=== PATIENT | male | born 1985 | race Two or more races ===

== ENCOUNTER 2020-01-18 10:13 | Outpatient (CLI) | payer OTHER | END 2020-01-18 10:19 | disposition home or self-care (01) | LOC: SONOGRAMA 10:13 | PROVIDERS: ATTEND Specialist | DX: R59.0 Localized enlarged lymph nodes (principal) ==

== ENCOUNTER 2020-01-21 09:11 | Outpatient (CLI) | payer OTHER | END 2020-01-21 09:31 | disposition home or self-care (01) | LOC: SONOGRAMA 09:11 | PROVIDERS: ATTEND Pathology Anatomic Pathology & Clinical Pathology | DX: R59.0 Localized enlarged lymph nodes (principal) ==